=== PATIENT | male | born 1995 | race Caucasian/White ===

== ENCOUNTER 2017-11-17 11:56 | Emergency (ER) | payer OTHER ==
[~2017-11-17] VITALS: Ht 172.7 cm; Wt 92.6 kg
[2017-11-17 12:02] VITALS: Ht 172.7 cm; Wt 92.6 kg
[2017-11-17] MEDS ORDERED: ACYC400T2 PO (14:23)
--- NOTE | 2017-11-17 14:36 | ERD ---
ER Documentation Chief Complaint Chief Complaint Pt with burning while urinating X 3 days. HPI 22-year-old male comes in with a painful sore on his penis with painful urination. The patient states that this started 3 days ago, he reports burning with urination but no drainage, fevers or chills. ROS All systems reviewed and are negative except as per history of present illness. Medications Home Meds Active Scripts Acyclovir* (Acyclovir*) 400 Mg Tablet, 400 MG PO TID for 7 Days, TAB Prov:MARKEL CROUCH PA-C 11/17/17 PMhx/Soc History of Surgery: No Anesthesia Reaction: No Hx Neurological Disorder: No Hx Respiratory Disorders: No Hx Cardiac Disorders: No Hx Psychiatric Problems: No Hx Miscellaneous Medical Probl: No Hx Alcohol Use: No Hx Substance Use: No Hx Tobacco Use: No Smoking Status: Never smoker Physical Exam Vitals Vital Signs Date Time Temp Pulse Resp B/P Pulse Ox O2 Delivery O2 Flow Rate FiO2 11/17/17 12:02 98.7 72 16 134/81 98 Physical Exam General: Well-developed, well-nourished. The patient appears in no acute distress. HEENT: Head is normocephalic, atraumatic. No scleral icterus. Neck: Supple. Nontender. Lungs: Clear to auscultation. Normal air movement. Heart: Regular rate and rhythm. S1 and S2 are normal. No murmurs, gallops, or rubs. Abdomen: Nondistended. Exam: Scrotum: Normal Hernia: None Testes/Epid: Non-tender w/ normal lie Cremaster: Reflex intact Lymph: No inguinal lymphadenopathy Discharge: None Glans penis uncircumcised, retracting the foreskin shows sores, with an erythematous base. Extremities: No clubbing or cyanosis. Moving extremities x 4. No weakness. Neurologic: Alert and oriented 3. No focal deficits. Normal speech and gait. Skin: Normal turgor. No rash or lesions. Procedures/MDM 22-year-old male comes in with a genital sore that is painful, erythematous on the glans penis. There is evidence of balanitis, cellulitis, Jim's gangrene, testicular pain involvement includes orchitis, epididymitis, or torsion. The patient was treated with acyclovir, advised to take Tylenol and ibuprofen. Departure Diagnosis: Primary Impression: Genital sore Condition: Good Patient Instructions: Herpes Genitalis, Hsv: Type Ii MARKEL CROUCH PA-C Nov 17, 2017 14:36
[2017-11-17 14:48] LABS: ADD UMIC YES; UR ASCORBIC ACID NEGATIVE (NEGATIVE); UR BILIRUBIN (Dip) NEGATIVE (NEGATIVE); UR BLOOD (Dip) 1+ mg/dL (NEGATIVE); UR CLARITY CLEAR (CLEAR); UR COLOR COLORLESS (YELLOW); UR GLUCOSE (Dip) NEGATIVE (NEGATIVE); UR KETONES (Dip) NEGATIVE (NEGATIVE); UR LEUKOCYTE ESTERASE (Dip) NEGATIVE Leu/ul (NEGATIVE); UR NITRITE (Dip) NEGATIVE (NEGATIVE); UR RBC 0 /HPF (0-5); UR SPECIFIC GRAVITY (Dip) 1.005 (1.003-1.030); UR TOTAL PROTEIN (Dip) NEGATIVE (NEGATIVE); UR UROBILINOGEN (Dip) NEGATIVE (NEGATIVE)
== END 2017-11-17 15:20 | disposition home or self-care (01) ==
LOC: FTE 11:56
DX: N50.89 Other specified disorders of the male genital organs (principal)
CPT/HCPCS: 81001; 87086; 87591; 99283